=== PATIENT | male | born 1965 | race American Indian/Alaskan Native ===

== ENCOUNTER 2018-06-01 14:45 | Emergency (ER) | payer OTHER ==
[2018-06-01] MEDS ORDERED: LIDOCAINE VISCOUS 2% PO ONE (15:53)
[2018-06-01] MEDS ORDERED: ALUM-MAG HYDROX-SIMETH 200-200-20MG/5ML PO ONE (15:53)
--- NOTE | 2018-06-01 16:05 | Emergency Department Report ---
<JERILYN SILVA - Last Filed: 06/01/18 16:55> - General Chief Complaint: Upper Respiratory Infection Stated Complaint: CHEST PAIN Time Seen by Provider: 06/01/18 15:52 Source: patient Mode of arrival: Ambulatory Limitations: No Limitations - History of Present Illness Initial Comments: 52-year-old male presents to ED with URI symptoms. Patient reports fever, cough, headache, body aches times a week. Patient has history of HIV. States her last appointment 3 months ago his viral load was undetectable. Patient currently on antiviral medications. Patient reports burning sensation inside of chest after eating soup earlier today. MD Complaint: fever, cough -: week(s) (1) Severity: moderate Quality: burning Consistency: constant Improves With: nothing Worsens With: nothing Associated Symptoms: fever, chills, myalgias, headache, rhinorrhea, cough - Related Data Previous Rx's Medication Instructions Recorded Last Taken Type Azithromycin [Zithromax TAB] 250 mg PO QDAY #4 tablet 06/01/18 Unknown Rx Benzonatate [Tessalon Perles] 100 mg PO Q8HR PRN #20 capsule 06/01/18 Unknown Rx Naproxen [Naprosyn] 500 mg PO BID #20 tablet 06/01/18 Unknown Rx traMADol [Ultram] 50 mg PO Q6HR PRN #7 tablet 06/01/18 Unknown Rx Allergies Allergy/AdvReac Type Severity Reaction Status Date / Time No Known Allergies Allergy Unverified 11/04/15 10:05 ED Review of Systems Comment: All other systems reviewed and negative Constitutional: chills, fever ENT: congestion Respiratory: cough Musculoskeletal: myalgia Neurological: headache ED Past Medical Hx - Past Medical History Previous Medical History?: Yes Hx Hypertension: Yes Hx HIV: Yes Additional medical history: gout - Social History Smoking Status: Never Smoker Substance Use Type: None - Medications Home Medications: Home Medications Medication Instructions Recorded Confirmed Last Taken Type Azithromycin [Zithromax TAB] 250 mg PO QDAY #4 tablet 06/01/18 Unknown Rx Benzonatate [Tessalon Perles] 100 mg PO Q8HR PRN #20 capsule 06/01/18 Unknown Rx Naproxen [Naprosyn] 500 mg PO BID #20 tablet 06/01/18 Unknown Rx traMADol [Ultram] 50 mg PO Q6HR PRN #7 tablet 06/01/18 Unknown Rx ED Physical Exam - General Limitations: No Limitations General appearance: alert, in no apparent distress - Head Head exam: Present: atraumatic, normocephalic - Eye Eye exam: Present: normal appearance - ENT ENT exam: Present: mucous membranes moist - Neck Neck exam: Present: normal inspection - Respiratory Respiratory exam: Present: normal lung sounds bilaterally. Absent: respiratory distress - Cardiovascular Cardiovascular Exam: Present: normal rhythm, tachycardia - GI/Abdominal GI/Abdominal exam: Present: soft. Absent: distended, tenderness - Extremities Exam Extremities exam: Present: normal inspection - Neurological Exam Neurological exam: Present: alert, oriented X3 - Psychiatric Psychiatric exam: Present: normal affect, normal mood - Skin Skin exam: Present: warm, dry, intact, normal color ED Medical Decision Making - Radiology Data Radiology results: image reviewed interpreted by me: Possible left sided infiltrate - Differential Diagnosis influenza, pneumonia, bronchitis ED Disposition Clinical Impression: Lung mass, HIV disease Is pt being admited?: No Condition: Stable Additional Instructions: FOLLOW UP ON DISCHARGE ASHELY ID CLINIC IS A GOOD STARTING POINT Prescriptions: Azithromycin [Zithromax TAB] 250 mg PO QDAY #4 tablet Benzonatate [Tessalon Perles] 100 mg PO Q8HR PRN #20 capsule PRN Reason: Cough Naproxen [Naprosyn] 500 mg PO BID #20 tablet traMADol [Ultram] 50 mg PO Q6HR PRN #7 tablet PRN Reason: Pain Referrals: PRIMARY CARE, [Primary Care Provider] - 3-5 Days Time of Disposition: 16:55 <AGUEDA MONTOYA - Last Filed: 06/01/18 17:46> ED Review of Systems ROS: Stated complaint: CHEST PAIN Other details as noted in HPI Cardiovascular: chest pain ED Past Medical Hx - Past Medical History Hx GERD: Yes ED Course Vital Signs 06/01/18 14:48 Temperature 98.8 F Pulse Rate 111 H Respiratory 20 Rate Blood Pressure 155/93 O2 Sat by Pulse 98 Oximetry - Reevaluation(s) Reevaluation #1: 06/01/18 17:[address] RESULT TAKEN - SEE REPORT LUNG MASS RAD RECOMMENDING CT WITH CONTRAST 06/01/18 17:44 HOME MED- HIV MED; ALSO TAKES GERD MED AND VITAMINS HE DOES NOT RECALL NAME USED TO BE FOLLOWED BY [facility] LOST HIS JOB IN OCTOBER WILL NEED FOLLOW UP ED Medical Decision Making - EKG Data -: EKG Interpreted by Me - Radiology Data Radiology results: report reviewed interpreted by me: LEFT LUNG CONSOLIDATION LUNG MASS - SEE REPORT CRITICAL RESULTS CALLED BY ASAEL - Medical Decision Making ASAEL CALLED - "MASS L LUNG" THEY RECOMMEND CT. DC TO HOME CANCELLED ADDITIONAL ORDERS PLACED, RN AWARE, CT ORDERED WITH CONTRAST PT UDATED PT TO MAIN ED DR DEL VALLE WILL FOLLOW PATIENT - Differential Diagnosis influenza, pneumonia, bronchitis IN SETTING OF HIV Critical care attestation.: If time is entered above; I have spent that time in minutes in the direct care of this critically ill patient, excluding procedure time. ED Disposition Does the pt Need Aspirin: No
[2018-06-01] MEDS ORDERED: ROCEPHIN IM ONE (16:49)
[2018-06-01] MEDS ORDERED: ZITHROMAX PO ONE (16:49)
[2018-06-01] MEDS ORDERED: XYLOCAINE 1% MPF 5 mL INFILTRATI ONE (16:49)
--- NOTE | 2018-06-01 17:18 | XRay Report ---
FINAL REPORT EXAM: XR CHEST ROUTINE 2V HISTORY: cough TECHNIQUE: PA and lateral views of the chest PRIORS: None. FINDINGS: Lines, tubes, and devices: N/A Lungs and pleura: Trachea is normal in position. There is a stellate density extending laterally from the left hilum into the left upper lobe measuring 5.0 x 2.8 cm, likely an underlying mass. It is pos sible this represents a focal rounded consolidation. CT is recommended. Cardiomediastinal silhouette: Cardiac and mediastinal silhouettes are unremarkable. Other: Bony structures are intact. IMPRESSION: Rounded density in the left lung extending from the left hilum, likely in the left upper lobe. Findin gs are suspicious for mass. CT is recommended.
[2018-06-01] MEDS ORDERED: NACL 0.9% 1000 ML 1,000 ML IV ONE ×2 (17:28→19:43)
--- NOTE | 2018-06-01 17:51 | Emergency Department Report ---
- General Chief Complaint: Upper Respiratory Infection Stated Complaint: CHEST PAIN Time Seen by Provider: 06/01/18 15:52 Source: patient Mode of arrival: Ambulatory Limitations: No Limitations - History of Present Illness Initial Comments: 52-year-old male with a past medical history HIV, hypertension, and gout presents to Hospital complains of URI symptoms 7 days. Patient's having generalized moderate body aches, chills, fever, headache, back pain, intermittent vomiting, and cough. MAXIMUM TEMPERATURE 102.5. Patient is HIV positive with a undetectable viral load 3 months ago. With anti-retroviral medications. Decreased by mouth intake reported the patient is tolerating soup. Patient did not receive a flu shot this season. Patient was initially seen in the [facility] department ED. Chest x-ray revealed a left-sided pneumonia versus mass and therefore patient was transferred to the acute side for further evaluation. Patient did receive Rocephin and azithromycin prior to transfer to this department. Labs and chest have been ordered and are pending. Patient denies having a PMD or ID doctor. Severity: moderate Improves With: nothing Worsens With: nothing Associated Symptoms: fever, chills, myalgias, headache, rhinorrhea, cough - Related Data Previous Rx's Medication Instructions Recorded Last Taken Type Azithromycin [Zithromax TAB] 250 mg PO QDAY #4 tablet 06/01/18 Unknown Rx Benzonatate [Tessalon Perles] 100 mg PO Q8HR PRN #20 capsule 06/01/18 Unknown Rx Ibuprofen [Motrin] 800 mg PO Q8HR PRN #30 tablet 06/01/18 Unknown Rx traMADol [Ultram] 50 mg PO Q6HR PRN #7 tablet 06/01/18 Unknown Rx Allergies Allergy/AdvReac Type Severity Reaction Status Date / Time No Known Allergies Allergy Unverified 11/04/15 10:05 ED Review of Systems ROS: Stated complaint: CHEST PAIN Other details as noted in HPI Comment: All other systems reviewed and negative Constitutional: chills, fever ENT: congestion Respiratory: cough Cardiovascular: chest pain Musculoskeletal: myalgia Neurological: headache ED Past Medical Hx - Past Medical History Previous Medical History?: Yes Hx Hypertension: Yes Hx GERD: Yes Hx HIV: Yes Additional medical history: gout - Social History Smoking Status: Never Smoker Substance Use Type: None - Medications Home Medications: Home Medications Medication Instructions Recorded Confirmed Last Taken Type Azithromycin [Zithromax TAB] 250 mg PO QDAY #4 tablet 06/01/18 Unknown Rx Benzonatate [Tessalon Perles] 100 mg PO Q8HR PRN #20 capsule 06/01/18 Unknown Rx Ibuprofen [Motrin] 800 mg PO Q8HR PRN #30 tablet 06/01/18 Unknown Rx traMADol [Ultram] 50 mg PO Q6HR PRN #7 tablet 06/01/18 Unknown Rx ED Physical Exam - General Limitations: No Limitations General appearance: alert, in no apparent distress - Other Other exam information: General: No limitations, patient is alert in no acute distress Head exam: Atraumatic, normocephalic. Right sided occipital enlarged lymph no palpable Eyes exam: Normal appearance, pupils equal reactive to light, extraocular movements intact ENT: Moist mucous membrane, normal oropharynx, no exudates or thrush. Right TM good light reflex without erythema. Left TM cerumen obscuring TM. No drainage Neck exam: Normal inspection, full range of motion, no meningismus nontender Respiratory exam: Clear to auscultation bilateral, no wheezes, rales, crackles Cardiovascular: Normal rate and rhythm, normal heart sounds Abdomen: Soft, nondistended, and nontender, with normal bowel sounds, no rebound, or guarding Extremity: Full range of motion normal inspection no deformity Back: Normal Inspection, full range of motion, no tenderness Neurologic: Alert, oriented x3, cranial nerves intact, no motor or sensory deficit Psychiatric: normal affect, normal mood Skin: Dry skin ED Course Vital Signs 06/01/18 06/01/18 06/01/18 14:48 18:06 18:10 Temperature 98.8 F 100.3 F H Pulse Rate 111 H 99 H Respiratory 20 16 16 Rate Blood Pressure 155/93 Blood Pressure 142/97 [Right] O2 Sat by Pulse 98 95 Oximetry 06/01/18 06/01/18 06/01/18 18:15 18:31 19:21 Temperature 99.3 F Pulse Rate 96 H 96 H 97 H Respiratory 12 17 16 Rate Blood Pressure 142/97 142/97 Blood Pressure 145/92 [Right] O2 Sat by Pulse 100 Oximetry ED Medical Decision Making - Lab Data Result diagrams: 06/01/18 18:01 06/01/18 18:01 Lab Results 06/01/18 06/01/18 06/01/18 Range/Units 18:01 18:01 18:01 WBC 6.5 (4.5-11.0) K/mm3 RBC 5.19 H (3.65-5.03) M/mm3 Hgb 15.5 H (11.8-15.2) gm/dl Hct 45.8 H (35.5-45.6) % MCV 88 (84-94) fl MCH 30 (28-32) pg MCHC 34 (32-34) % RDW 16.3 H (13.2-15.2) % Plt Count 192 (140-440) K/mm3 Lymph % (Auto) 30.9 (13.4-35.0) % [place] % (Auto) 10.2 H (0.0-7.3) % Eos % (Auto) 0.5 (0.0-4.3) % Baso % (Auto) 0.9 (0.0-1.8) % Lymph # 2.0 (1.2-5.4) K/mm3 [place] # 0.7 (0.0-0.8) K/mm3 Eos # 0.0 (0.0-0.4) K/mm3 Baso # 0.1 (0.0-0.1) K/mm3 Seg Neutrophils % 57.5 (40.0-70.0) % Seg Neutrophils # 3.8 (1.8-7.7) K/mm3 VBG pH (7.320-7.420) Sodium 134 L (137-145) mmol/L Potassium 3.6 (3.6-5.0) mmol/L Chloride 95.6 L (98-107) mmol/L Carbon Dioxide 23 (22-30) mmol/L Anion Gap 19 mmol/L BUN 12 (9-20) mg/dL Creatinine 1.0 (0.8-1.5) mg/dL Estimated GFR > 60 ml/min BUN/Creatinine Ratio 12 % Glucose 120 H (75-100) mg/dL Lactic Acid 1.40 (0.7-2.0) mmol/L Calcium 8.8 (8.4-10.2) mg/dL Total Bilirubin 0.40 (0.1-1.2) mg/dL AST 60 H (5-40) units/L ALT 54 (7-56) units/L Alkaline Phosphatase 121 (35-129) units/L Troponin T < 0.010 (0.00-0.029) ng/mL Total Protein 8.6 H (6.3-8.2) g/dL Albumin 4.3 (3.9-5) g/dL Albumin/Globulin Ratio 1.0 % Urine Color (Yellow) Urine Turbidity (Clear) Urine pH (5.0-7.0) Ur Specific [place] (1.003-1.030) Urine Protein (Negative) mg/dL Urine Glucose (UA) (Negative) mg/dL Urine Ketones (Negative) mg/dL Urine Blood (Negative) Urine Nitrite (Negative) Urine Bilirubin (Negative) Urine Urobilinogen (<2.0) mg/dL Ur Leukocyte Esterase (Negative) Urine WBC (Auto) (0.0-6.0) /HPF Urine RBC (Auto) (0.0-6.0) /HPF Urine Mucus /HPF Influenza A (Rapid) (Negative) Influenza B (Rapid) (Negative) 06/01/18 06/01/18 06/01/18 Range/Units 18:07 19:15 20:30 WBC (4.5-11.0) K/mm3 RBC (3.65-5.03) M/mm3 Hgb (11.8-15.2) gm/dl Hct (35.5-45.6) % MCV (84-94) fl MCH (28-32) pg MCHC (32-34) % RDW (13.2-15.2) % Plt Count (140-440) K/mm3 Lymph % (Auto) (13.4-35.0) % [place] % (Auto) (0.0-7.3) % Eos % (Auto) (0.0-4.3) % Baso % (Auto) (0.0-1.8) % Lymph # (1.2-5.4) K/mm3 [place] # (0.0-0.8) K/mm3 Eos # (0.0-0.4) K/mm3 Baso # (0.0-0.1) K/mm3 Seg Neutrophils % (40.0-70.0) % Seg Neutrophils # (1.8-7.7) K/mm3 VBG pH 7.393 (7.320-7.420) Sodium (137-145) mmol/L Potassium (3.6-5.0) mmol/L Chloride (98-107) mmol/L Carbon Dioxide (22-30) mmol/L Anion Gap mmol/L BUN (9-20) mg/dL Creatinine (0.8-1.5) mg/dL Estimated GFR ml/min BUN/Creatinine Ratio % Glucose (75-100) mg/dL Lactic Acid (0.7-2.0) mmol/L Calcium (8.4-10.2) mg/dL Total Bilirubin (0.1-1.2) mg/dL AST (5-40) units/L ALT (7-56) units/L Alkaline Phosphatase (35-129) units/L Troponin T (0.00-0.029) ng/mL Total Protein (6.3-8.2) g/dL Albumin (3.9-5) g/dL Albumin/Globulin Ratio % Urine Color Yellow (Yellow) Urine Turbidity Clear (Clear) Urine pH 5.0 (5.0-7.0) Ur Specific [place] 1.047 H (1.003-1.030) Urine Protein <15 mg/dl (Negative) mg/dL Urine Glucose (UA) Neg (Negative) mg/dL Urine Ketones Tr (Negative) mg/dL Urine Blood Sm (Negative) Urine Nitrite Neg (Negative) Urine Bilirubin Neg (Negative) Urine Urobilinogen < 2.0 (<2.0) mg/dL Ur Leukocyte Esterase Neg (Negative) Urine WBC (Auto) 4.0 (0.0-6.0) /HPF Urine RBC (Auto) 2.0 (0.0-6.0) /HPF Urine Mucus Few /HPF Influenza A (Rapid) Negative (Negative) Influenza B (Rapid) Negative (Negative) - EKG Data -: EKG Interpreted by Mi EKG shows normal: sinus rhythm, axis (qrs -13), QRS complexes (qrsd 96), ST-T waves (no stemi) Rate: normal (91) - EKG Data When compared to previous EKG there are: no significant change, previous EKG unavailable - Radiology Data Radiology results: report reviewed FINAL REPORT EXAM: CT CHEST W CON HISTORY: LUNG MASS FINAL REPORT EXAM: CT CHEST W CON HISTORY: LUNG MASS TECHNIQUE: Standard enhanced CT of the chest at 2.5 mm axial increments. Coronal and sagittal reconstruction was also obtained. Contrast: 100 ml Omnipaque 350 given IV PRIORS: None. FINDINGS: In the left upper lobe, there is a ill-defined area of consolidation measuring approximately 4.6 x 3.7 cm (axial image 43). There are air bronchograms traversing and within this focus suggesting infection is the most likely etiology. However, given the round nature, follow up to resolution is recommended. There are other patchy nodular areas surrounding this main focus elsewhere in the left upper lobe which are also presumed to be infectious rather than neoplastic. There is no evidence for vascular congestion, pleural effusion, or pneumothorax. There is no evidence for mediastinal, hilar, or axillary adenopathy. The esophagus is collapsed. The trachea is midline. Cardiovascular structures are within normal limits. Cardiac size and aorta are normal. Images through the lung bases include upper abdomen which show no abnormality of the visualized abdominal viscera. Focal fatty deposition along the anterior falciform ligament is noted. Bony structures show no focal abnormalities. No evidence for bony fracture is se en. IMPRESSION: 1 rounded area parenchymal density in the left upper lobe containing air bronchograms. Findings favor infection rather than neoplasm. Findings should be followed to radiographic resolution. 2. Several patchy areas of density surrounding this main area are also likely infectious, elsewhere in the left upper lobe. FINAL REPORT EXAM: XR CHEST ROUTINE 2V HISTORY: cough TECHNIQUE: PA and lateral views of the chest PRIORS: None. FINDINGS: Lines, tubes, and devices: N/A Lungs and pleura: Trachea is normal in position. There is a stellate density extending laterally from the left hilum into the left upper lobe measuring 5.0 x 2.8 cm, likely an underlying mass. It is possible this represents a focal rounded consolidation. CT is recommended. Cardiomediastinal silhouette: Cardiac and mediastinal silhouettes are unremarkable. Other: Bony structures are intact. IMPRESSION: Rounded density in the left lung extending from the left hilum, likely in the left upper lobe. Findings are suspicious for mass. CT is recommended. - Medical Decision Making CT chest confirms that imaging findings likely related to infection as opposed to mass.. Patient has a low risk PSI score and and Curb score of 0 and reports recent undetectable viral load with anti-retroviral compliance therefore will be treated with outpatient antibiotics and close follow-up. Close outpatient follow-up will be recommended. - Differential Diagnosis pneumonia, mass, bronchitis, viral syndrome, influenza Critical Care Time: No Critical care attestation.: If time is entered above; I have spent that time in minutes in the direct care of this critically ill patient, excluding procedure time. ED Disposition Clinical Impression: HIV disease, Pneumonia Disposition: DC- TO HOME OR SELFCARE Is pt being admited?: No Does the pt Need Aspirin: No Condition: Stable Instructions: Community-acquired Pneumonia (ED) Additional Instructions: Take the medication as prescribed. Follow up with the doctor and/or clinic provided. You may also attempt follow-up with the [place] [facility]. Return if symptoms worsen as indicated by your discharge instructions. Prescriptions: Azithromycin [Zithromax TAB] 250 mg PO QDAY #4 tablet Benzonatate [Tessalon Perles] 100 mg PO Q8HR PRN #20 capsule PRN Reason: Cough Ibuprofen [Motrin] 800 mg PO Q8HR PRN #30 tablet PRN Reason: Fever >101 traMADol [Ultram] 50 mg PO Q6HR PRN #7 tablet PRN Reason: Pain Referrals: PRIMARY CARE, [Primary Care Provider] - 3-5 Days [facility] [Provider Group] - 3-5 Days [facility] [Provider Group] - 3-5 Days Time of Disposition: 21:31
[2018-06-01 18:33] LABS: Basophils # (Auto) 0.1 K/mm3 (0.0-0.1); Basophils % (Auto) 0.9 % (0.0-1.8); Eosinophils % (Auto) 0.5 % (0.0-4.3); Hematocrit 45.8 % (35.5-45.6); Hemoglobin 15.5 gm/dl (11.8-15.2); Lymphocytes % (Auto) 30.9 % (13.4-35.0); Mean Corpuscular HGB Conc 34 % (32-34); Mean Corpuscular Volume 88 fl (84-94); Monocytes # (Auto) 0.7 K/mm3 (0.0-0.8); Monocytes % (Auto) 10.2 % (0.0-7.3); Platelet Count 192 K/mm3 (140-440); Red Blood Count 5.19 M/mm3 (3.65-5.03); Red Cell Distribution Width 16.3 % (13.2-15.2)
[2018-06-01] MEDS ORDERED: TYLENOL PO ONE (18:44)
[2018-06-01 18:51] LABS: Alanine Aminotransferase 54 units/L (7-56); Albumin 4.3 g/dL (3.9-5); BUN/Creatinine Ratio 12; Blood Urea Nitrogen 12 mg/dL (9-20); Calcium 8.8 mg/dL (8.4-10.2); Hemolysis Index 15
--- NOTE | 2018-06-01 20:51 | Cat Scan Report ---
FINAL REPORT EXAM: CT CHEST W CON HISTORY: LUNG MASS TECHNIQUE: Standard enhanced CT of the chest at 2.5 mm axial increments. Coronal and sagittal recons truction was also obtained. Contrast: 100 ml Omnipaque 350 given IV PRIORS: None. FINDINGS: In the left upper lobe, there is a ill-defined area of consolidation measuring approximately 4.6 x 3. 7 cm (axial image 43). There are air bronchograms traversing and within this focus suggesting infecti on is the most likely etiology. However, given the round nature, follow up to resolution is recommend ed. There are other patchy nodular areas surrounding this main focus elsewhere in the left upper lobe which are also presumed to be infectious rather than neoplastic. There is no evidence for vascular congestion, pleural effusion, or pneumothorax. There is no evidence for mediastinal, hilar, or axillary adenopathy. The esophagus is collapsed. Th e trachea is midline. Cardiovascular structures are within normal limits. Cardiac size and aorta are normal. Images through the lung bases include upper abdomen which show no abnormality of the visualized abdom inal viscera. Focal fatty deposition along the anterior falciform ligament is noted. Bony structures show no focal abnormalities. No evidence for bony fracture is seen. IMPRESSION: 1 rounded area parenchymal density in the left upper lobe containing air bronchograms. Findings favor infection rather than neoplasm. Findings should be followed to radiographic resolution. 2. Several patchy areas of density surrounding this main area are also likely infectious, elsewhere i n the left upper lobe.
[2018-06-01 20:52] LABS: Bilirubin,Urine NEG (Negative); Blood,Urine SM (Negative); Color,Urine Yellow (Yellow); Mucus,Urine FEW /HPF; Protein,Urine <15 mg/dL mg/dL (Negative); Urobilinogen,Urine < 2.0 mg/dL (<2.0)
[2018-06-01 21:50] VITALS: BP 118/80
== END 2018-06-01 21:50 | disposition home or self-care (01) ==
LOC: ED 15:59
DX: J18.9 Pneumonia, unspecified organism (principal); Z21 Asymptomatic human immunodeficiency virus [HIV] infection status; R11.10 Vomiting, unspecified; I10 Essential (primary) hypertension; M10.9 Gout, unspecified; K21.9 Gastro-esophageal reflux disease without esophagitis
CPT/HCPCS: 36415; 71046; 71260; 80053; 81001; 82140; 82805; 84484; 85025; 87040; 87400; 93005; 93010; 96360; 96361; 96372; 99285; J0696; J7030; Q9967